=== PATIENT | male | born 2000 | race Two or more races ===

== ENCOUNTER 2019-04-06 11:08 | Emergency (ER) | payer OTHER ==
[~2019-04-06] VITALS: Ht 188 cm; Wt 83.9 kg
[2019-04-06] MEDS ORDERED: IBU800 MG PO (12:07)
[2019-04-06] MEDS ORDERED: CYCL10 PO (12:07)
== END 2019-04-06 13:16 | disposition home or self-care (01) ==
LOC: ER 11:08
DX: M54.5 Low back pain (principal)
CPT/HCPCS: 72100; 99283-25